=== PATIENT | female | born 1965 | race Caucasian/White ===

== ENCOUNTER 2021-05-16 11:19 | Outpatient (CLI) | payer BC | END 2021-05-16 11:20 | disposition home or self-care (01) | LOC: BICRAD 11:19 | PROVIDERS: ATTEND Clinical Nurse Specialist Medical-Surgical | DX: Z12.31 Encounter for screening mammogram for malignant neoplasm of breast (principal); M25.552 Pain in left hip; N64.89 Other specified disorders of breast; M16.12 Unilateral primary osteoarthritis, left hip | CPT/HCPCS: 77063; 77067 ==

== ENCOUNTER 2023-01-10 14:25 | Outpatient (CLI) | payer BC | END 2023-01-10 14:26 | disposition home or self-care (01) | LOC: BICMAMMO 14:25 | PROVIDERS: ATTEND Nurse Practitioner Family | DX: Z12.31 Encounter for screening mammogram for malignant neoplasm of breast (principal) | CPT/HCPCS: 77063; 77067 ==

== ENCOUNTER 2023-08-13 08:31 | Outpatient (CLI) | payer BC | END 2023-08-13 08:32 | disposition home or self-care (01) | LOC: NM 08:31 | PROVIDERS: ATTEND Physician Assistant | DX: E21.3 Hyperparathyroidism, unspecified (principal) | CPT/HCPCS: 78072; A9500 ==

== ENCOUNTER 2023-12-11 07:11 | Day surgery (SDC) | payer BC ==
[2023-12-04 12:01] VITALS: BMI 34.9
[2023-12-11] MEDS ORDERED: SUCCINYLCHOLINE/SOD CL,ISO/PF 200 MG/10 ML SYRINGE FS ONE (11:22)
[2023-12-11] MEDS ORDERED: Midazolam HCl 2 mg/2 ml Vial ONE (11:23)
[2023-12-11] MEDS ORDERED: PROPOFOL 20 ML ONE (11:23)
[2023-12-11] MEDS ORDERED: Dexamethasone 20 MG/5 ML VIAL ONE (11:24)
[2023-12-11] MEDS ORDERED: Ondansetron PF 4 MG/2 ML Vial ONE (11:24)
[2023-12-11] MEDS ORDERED: Lidocaine 1% PF 5 ML VIAL ONE (11:24)
[2023-12-11] MEDS ORDERED: fentaNYL PF 100 MCG/2 ML SYRINGE ONE ×2 (11:28)
[2023-12-11] MEDS ORDERED: Lidocaine 1% (PF) 30 ML VIAL ONE (11:28)
[2023-12-11] MEDS ORDERED: EPINEPHrine 1 MG/ML VIAL ONE (11:28)
[2023-12-11] MEDS ORDERED: Phenylephrine 10 MG/ML VIAL ONE (11:46)
[2023-12-11] MEDS ORDERED: CEFAZOLIN 1 GM VIAL ONE ×2 (12:07)
[2023-12-11] MEDS ORDERED: Metoprolol Tartrate 5 MG (5 mL) VIAL ONE (13:21)
[2023-12-11] MEDS ORDERED: hydrALAZINE 20 MG/ML VIAL ONE (13:53)
[2023-12-11] MEDS ORDERED: fentaNYL 50 mcg/mL 1 mL Vial ONE (13:56)
[2023-12-11] MEDS ORDERED: HYDROcodone/Acetaminophen 5/325 mg Tablet ONE (14:56)
== END 2023-12-11 15:15 | disposition home or self-care (01) ==
LOC: SDC 07:11
PROVIDERS: ATTEND Otolaryngology Plastic Surgery within the Head & Neck
PROC: 0GT Endocrine System, Resection (ICD-10-PCS; principal; 2023-12-11)
DX: E21.3 Hyperparathyroidism, unspecified (principal); Z79.899 Other long term (current) drug therapy
CPT/HCPCS: 88305; J0171; J0360; J0690; J1100; J2001; J2250; J2371; J2405; J2704; J3010

== ENCOUNTER 2025-05-14 09:25 | Outpatient (CLI) | payer OTHER | END 2025-05-14 09:26 | disposition home or self-care (01) | LOC: NM 09:25 | PROVIDERS: ATTEND Otolaryngology | DX: E21.3 Hyperparathyroidism, unspecified (principal); R94.6 Abnormal results of thyroid function studies | CPT/HCPCS: 78072; A9500 ==